=== PATIENT | female | born 1985 | race Caucasian/White ===

== ENCOUNTER 2017-06-09 18:21 | Outpatient (CLI) | payer OTHER ==
[~2017-06-09] VITALS: Ht 162.6 cm; Wt 103.4 kg
[~2017-06-09 18:21] MED LIST: AMOXICILLIN875 MG PO; ATIVAN0.5 MG PO; EFFEXOR XR150 MG PO; FLONASE16 G1 BOTH NARES; IMITREX100 MG PO; JOLIVETTE0.35 MG PO; Motrin PO; PANTOPRAZOLE SO40 MG PO; RANITIDINE HCL300 MG PO; THRIVE; ZOFRAN4 MG PO; [UNRECOGNIZED DRUG - REMARK]
[2017-06-09 18:37] VITALS: BP 137/75
[2017-06-09] MEDS ORDERED: PRENATAL TABLE1 EAC3 PO (19:32)
[2017-06-09] MEDS ORDERED: DIABETA5 MG PO (19:32)
[2017-06-09 19:33] LABS: POINT-OF-CARE METER ID UU13113801
[2017-06-09 21:00] VITALS: BP 120/72
[2017-06-09 21:42] LABS: POINT-OF-CARE METER ID UU13113801
[2017-06-09 22:17] LABS: CANDIDA DNA PROBE NEGATIVE; GARDNERELLA DNA PROBE NEGATIVE; INTERNAL CONTROL VALID? YES
== END 2017-06-09 21:45 | disposition home or self-care (01) ==
LOC: LDRP-OP 18:21 → 2WEST 18:23 → LDRP-OP 08-21 16:12
PROVIDERS: Advanced Practice Midwife; Obstetrics & Gynecology Obstetrics
DX: O47.03 False labor before 37 completed weeks of gestation, third trimester (principal); Z3A.34 34 weeks gestation of pregnancy
CPT/HCPCS: 59025; 76805; 82731; 82948; 87480; 87510; 87660; G0378

== ENCOUNTER 2017-07-07 20:48 | Outpatient (CLI) | payer OTHER ==
[~2017-07-07 20:48] MED LIST changes: +DIABETA5 MG PO; +PRENATAL TABLE1 EAC3 PO
[2017-07-07 21:19] VITALS: BP 113/62
== END 2017-07-07 22:47 | disposition home or self-care (01) ==
LOC: LDRP-OP 20:48 → 2WEST 20:50 → LDRP-OP 08-21 21:53
DX: O60.03 Preterm labor without delivery, third trimester (principal); Z3A.38 38 weeks gestation of pregnancy
CPT/HCPCS: 59025; G0378